=== PATIENT | male | born 1965 | race Caucasian/White ===

== ENCOUNTER 2017-02-12 08:47 | Day surgery (SDC) | payer BC ==
--- NOTE | ~2017-02-12 | EGD ---
EGD REPORT [facility] [address] [id number] NAME: HAZEL STAUFFER JR : 67 STATUS : [place] [facility] [place] PAT#: [id number] AGE: 52 ADM/REG DATE : 02/12/17 MR#: [id number] REPORT SERV DATE: 02/12/17 DICTATED BY: HAZEL SANDOVAL DATE: 02/12/17 REPORT STATUS : Draft [facility]: [facility] DATE: 02/12/17 Endoscopy Center Patient Name: Hazel Stauffer Date of : 1965 Attending MD: HAZEL SANDOVAL MD Procedure Date No Time: 02/12/2017 Procedure: Colonoscopy Indications: Screening for colorectal malignant neoplasm Referring MD: MELISSA HICKEY Medicines: Monitored Anesthesia Care Complications: No immediate complications. Procedure: Pre-Anesthesia Assessment: - ASA Grade Assessment: III - A patient with severe systemic disease. After I obtained informed consent, the scope was passed under direct vision. Throughout the procedure, the patient's blood pressure, pulse, and oxygen saturations were monitored continuously. The CF [id number] was introduced through the anus and advanced to the cecum, identified by appendiceal orifice and ileocecal valve. The colonoscopy was performed without difficulty. The patient tolerated the procedure well. The quality of the bowel preparation was adequate. Findings: The digital rectal exam was normal. Pertinent negatives include no palpable rectal lesions. Five sessile polyps were found in the sigmoid colon. The polyps were 2 to 4 mm in size. These polyps were removed with a cold biopsy forceps. Resection and retrieval were complete. Hemorrhoids were found during retroflexion and were mild. Impression: - Five 2 to 4 mm polyps in the sigmoid colon. Resected and retrieved. - Hemorrhoids. Recommendation: - Patient has a contact number available for emergencies. The signs and symptoms of potential delayed complications were discussed with the patient. Return to normal activities tomorrow. Written discharge instructions were provided to the patient. - Regular diet. - Continue present medications. - Repeat colonoscopy for surveillance based on pathology results. EGD REPORT [facility] [address] [id number] NAME: DAVIDSlimeHAZEL JR : 67 STATUS : [place] [facility] [place] PAT#: [id number] AGE: 52 ADM/REG DATE : 02/12/17 MR#: [id number] REPORT SERV DATE: 02/12/17 DICTATED BY: HAZEL SANDOVAL DATE: 02/12/17 REPORT STATUS : Draft TRANSCRIBED BY: [employer] DATE: 02/12/17 - Return to GI clinic PRN. Procedure Code(s): --- Professional --- 44208, Colonoscopy, flexible, proximal to splenic flexure; with biopsy, single or multiple Diagnosis Code(s): --- Professional --- D12.5, Benign neoplasm of sigmoid colon K64.9, Unspecified hemorrhoids Z12.11, Encounter for screening for malignant neoplasm of colon CPT copyright 2013 [employer]. All rights reserved. The codes documented in this report are preliminary and upon brick offbearer review may be revised to meet current compliance requirements. HAZEL SANDOVAL MD 02/12/2017 11:01 AM This report has been signed electronically. Number of Addenda: 0 Note Initiated On: 02/12/2017 10:33 AM Scope Withdrawal Time 0 hours 11 minutes 44 seconds [id number] [id number]
[~2017-02-12 08:47] MED LIST: DIOVAN HCT320 MG/25 PO; NORV10 PO; VITAMINS PO
== END 2017-02-12 23:59 | disposition home or self-care (01) ==
LOC: DMU 08:47
PROVIDERS: Internal Medicine Gastroenterology
PROC: 0DBN8ZX Excision of Sigmoid Colon, Via Natural or Artificial Opening Endoscopic, Diagnostic (ICD-10-PCS; principal; 2017-02-12 10:30)
DX: Z12.11 Encounter for screening for malignant neoplasm of colon (principal); K63.5 Polyp of colon; K64.9 Unspecified hemorrhoids; I10 Essential (primary) hypertension; G47.33 Obstructive sleep apnea (adult) (pediatric); Z79.899 Other long term (current) drug therapy; Z98.890 Other specified postprocedural states
CPT/HCPCS: 88305; J2250